=== PATIENT | male | born 1930 | race Caucasian/White ===

== ENCOUNTER → 2017-05-13 | Outpatient (CLI) | payer MEDICARE ==
[~2017-05-13] MED LIST: NORVASC5 MG PO; TOPROL XL 100100 MG PO
== END ==
LOC: RT 11:48
DX: I10 Essential (primary) hypertension (principal); R94.31 Abnormal electrocardiogram [ECG] [EKG]
CPT/HCPCS: 93005

== ENCOUNTER 2017-08-05 12:44 | Inpatient (IN) | payer MEDICARE ==
[~2017-08-05] VITALS: Ht 180.3 cm; Wt 76.2 kg
[2017-08-05 13:34] LABS: RED BLOOD COUNT 3.85 M/UL (4.20-5.50); WHITE BLOOD COUNT 21.6 K/UL (4.5-11.0)
[2017-08-05] MEDS ORDERED: TOPROL XL 100100 MG PO (17:31)
[2017-08-05] MEDS ORDERED: NORVASC5 MG PO (17:32)
[2017-08-06 05:50] LABS: HEMOGLOBIN 14.7 gm/dl (14.0-17.5); RED BLOOD COUNT 5.61 M/UL (4.20-5.50); WHITE BLOOD COUNT 14.4 K/UL (4.5-11.0)
[2017-08-07 05:23] LABS: RED BLOOD COUNT 3.26 M/UL (4.20-5.50); WHITE BLOOD COUNT 22.1 K/UL (4.5-11.0)
[2017-08-07 05:26] LABS: HEMOGLOBIN 8.4 gm/dl (14.0-17.5)
[2017-08-07 17:20] LABS: HEMOGLOBIN 9.1 gm/dl (14.0-17.5); RED BLOOD COUNT 3.54 M/UL (4.20-5.50); WHITE BLOOD COUNT 22.4 K/UL (4.5-11.0)
[2017-08-08 04:20] LABS: HEMOGLOBIN 7.9 gm/dl (14.0-17.5)
[2017-08-08 04:30] LABS: RED BLOOD COUNT 3.12 M/UL (4.20-5.50); WHITE BLOOD COUNT 16.2 K/UL (4.5-11.0)
[2017-08-08 15:47] LABS: HEMOGLOBIN 7.5 gm/dl (14.0-17.5); RED BLOOD COUNT 2.94 M/UL (4.20-5.50); WHITE BLOOD COUNT 16.2 K/UL (4.5-11.0)
[2017-08-09 06:05] LABS: HEMOGLOBIN 7.8 gm/dl (14.0-17.5); RED BLOOD COUNT 3.06 M/UL (4.20-5.50); WHITE BLOOD COUNT 13.1 K/UL (4.5-11.0)
[2017-08-10 06:44] LABS: HEMOGLOBIN 7.8 gm/dl (14.0-17.5); RED BLOOD COUNT 3.1 M/UL (4.20-5.50); WHITE BLOOD COUNT 13.9 K/UL (4.5-11.0)
[2017-08-11 03:55] LABS: HEMOGLOBIN 8.4 gm/dl (14.0-17.5); RED BLOOD COUNT 3.34 M/UL (4.20-5.50); WHITE BLOOD COUNT 13.9 K/UL (4.5-11.0)
[2017-08-12 03:43] LABS: HEMOGLOBIN 9.7 gm/dl (14.0-17.5); WHITE BLOOD COUNT 16.1 K/UL (4.5-11.0)
[2017-08-12 03:46] LABS: RED BLOOD COUNT 3.81 M/UL (4.20-5.50)
[2017-08-13 06:55] LABS: RED BLOOD COUNT 3.56 M/UL (4.20-5.50); WHITE BLOOD COUNT 12.3 K/UL (4.5-11.0)
[2017-08-14 04:51] LABS: HEMOGLOBIN 9.2 gm/dl (14.0-17.5); RED BLOOD COUNT 3.71 M/UL (4.20-5.50); WHITE BLOOD COUNT 12.7 K/UL (4.5-11.0)
[2017-08-15 04:01] LABS: HEMOGLOBIN 8.6 gm/dl (14.0-17.5); RED BLOOD COUNT 3.38 M/UL (4.20-5.50)
[2017-08-16 04:20] LABS: HEMOGLOBIN 9.2 gm/dl (14.0-17.5); RED BLOOD COUNT 3.6 M/UL (4.20-5.50); WHITE BLOOD COUNT 11.7 K/UL (4.5-11.0)
--- NOTE | 2017-08-17 16:08 | NUR ---
08/17/17 11:00 Sister and nelaura here. Pt will not open his eyes, but will answer them. Sister is attempting to feed him, however it it just falling back out of his mouth. 13:00 Dr. Nguyen here. Informed him of neuro findings and the ativan given during night for pt being so restless and combative.
== END 2017-08-20 14:44 | DRG 871 ==
LOC: ER1 12:44 → CCU 15:05 → ZEROF 15:05 → PROG CARE 15:05 → CCU 17:26 → PROG CARE 08-15 16:20
PROVIDERS: Emergency Medicine; Internal Medicine; Internal Medicine Infectious Disease; Internal Medicine Nephrology; ADMIT Internal Medicine
PROC: 5A09457 Assistance with Respiratory Ventilation, 24-96 Consecutive Hours, Continuous Positive Airway Pressure (ICD-10-PCS; principal; 2017-08-08)
DX: A41.9 Sepsis, unspecified organism (principal); J69.0 Pneumonitis due to inhalation of food and vomit; G93.41 Metabolic encephalopathy; I50.23 Acute on chronic systolic (congestive) heart failure; J96.01 Acute respiratory failure with hypoxia; I13.0 Hypertensive heart and chronic kidney disease with heart failure and stage 1 through stage 4 chronic kidney disease, or unspecified chronic kidney disease; N17.9 Acute kidney failure, unspecified; E87.2 Acidosis; N18.4 Chronic kidney disease, stage 4 (severe); E87.0 Hyperosmolality and hypernatremia; E46 Unspecified protein-calorie malnutrition; E87.3 Alkalosis; J98.11 Atelectasis; R65.20 Severe sepsis without septic shock; D50.9 Iron deficiency anemia, unspecified; E87.6 Hypokalemia; I48.0 Paroxysmal atrial fibrillation; I48.2 Chronic atrial fibrillation; N28.1 Cyst of kidney, acquired; R73.9 Hyperglycemia, unspecified; R74.8 Abnormal levels of other serum enzymes; F03.90 Unspecified dementia, unspecified severity, without behavioral disturbance, psychotic disturbance, mood disturbance, and anxiety; Z85.828 Personal history of other malignant neoplasm of skin; Z91.81 History of falling; Z72.3 Lack of physical exercise; Z68.23 Body mass index [BMI] 23.0-23.9, adult; Z79.899 Other long term (current) drug therapy; Z98.890 Other specified postprocedural states; Z83.3 Family history of diabetes mellitus; Z80.9 Family history of malignant neoplasm, unspecified
CPT/HCPCS: ECHO; 36415; 36600; 70450; 71010; 80048; 80053; 80202; 80307; 81001; 82043; 82140; 82550; 82553; 82570; 82607; 82728; 82746; 82800; 82803; 83540; 83550; 83605; 83735; 83874; 83880; 84100; 84132; 84484; 85025; 85027; 85610; 85730; 87040; 92526; 92610; 93005; 93306; 94660; 97110; 97116; 97530; 97535; C9113; G0480; J0456; J1630; J1644; J1650; J1940; J2060; J2280; J3370; J3480; J7030; J7040; J7050; J7070; J7120